=== PATIENT | male | born 1960 | race Caucasian/White ===

== ENCOUNTER 2016-11-29 06:50 | Day surgery (SDC) | payer OTHER ==
[~2016-11-29 06:50] MED LIST: FENTANYL 250 MCG/5 ML AMP IV PRN; IV START KIT ONE; LACTATED RINGERS 1,000 ML IV SCH; LACTATED RINGERS 1,000 ML ONE; LIDOCAINE Viscous 2% 15 ML UDCUP PO PRN; MIDAZOLAM HCL 5 MG/5 ML VIAL IV PRN
[2016-11-29] MEDS ORDERED: MIDAZOLAM HCL 5 MG/5 ML VIAL ONE (07:37)
[2016-11-29] MEDS ORDERED: LIDOCAINE Viscous 2% 15 ML UDCUP ONE (07:37)
[2016-11-29] MEDS ORDERED: FENTANYL 5 ML ONE (07:37)
[2016-11-29 17:15] LABS: HELICOBACTER PYLORII DETECTION NEGATIVE (NEGATIVE)
--- NOTE | 2016-12-01 12:06 | SURGPATH ---
[facility] [address] [place] [id number] Patient Name: BEE STEARNS MR#: [id number] : 1960 Gender: M Specimen #: [id number] Collected: 11/29/2016 Received: 11/30/2016 Reported: 12/01/2016 Submitting Phys: JESUS WALKER Copy To Phys: [facility] JOEY CASTILLO JULIE C Clinical History / Pre-Operative Diagnosis: Epigastric pain, dysphagia, rule out; giardia, celiac sprue, gastritis Specimen Source / Surgical Procedure Performed: #1 duodenal biopsy, #2 antral biopsy Interpretation: 1. STOMACH, BIOPSY: - GASTRIC MUCOSA WITH NO DIAGNOSTIC ABNORMALITY 2. DUODENUM, BIOPSY: - SMALL BOWEL MUCOSA WITH NO DIAGNOSTIC ABNORMALITY Comment: It appears that the tissue from the biopsies was put in jars with the opposite labels. The final diagnoses represent what was actually submitted in each specimen. Electronically Signed Out Stephy Cunningham M.D. Gross Description: 1. The specimen is received in formalin labeled with the patient's name and "duodenum". The specimen consists of two fragments of paige soft tissue, 0.8 x 0.4 x 0.1 cm in aggregate. Submitted in toto in one cassette. 2. The specimen is received in formalin labeled with the patient's name and "antrum". The specimen consists of two fragments of paige soft tissue, 0.8 x 0.2 x 0.2 cm in aggregate. Submitted in toto in one cassette. LOLI Ellison Microscopic Description: 1. Sections show fragments of gastric mucosa. There is normal mucosal architecture and no significant inflammation. No Helicobacter organisms are identified and there is no intestinal metaplasia or dysplasia. 2. Sections show fragments of small bowel mucosa with long and well preserved villous processes. There is no significant inflammation and lymphocytes are not increased within the epithelium. No infectious organisms are identified and there is no dysplasia. 1: [id number] 2: 47597 R10.13
== END 2016-11-29 09:05 | disposition home or self-care (01) ==
LOC: SDC 06:50
PROVIDERS: ATTEND Internal Medicine Gastroenterology
PROC: 0DB98ZX Excision of Duodenum, Via Natural or Artificial Opening Endoscopic, Diagnostic (ICD-10-PCS; principal; 2016-11-29)
PROC: 0DB68ZX Excision of Stomach, Via Natural or Artificial Opening Endoscopic, Diagnostic (ICD-10-PCS; 2016-11-29)
DX: K29.70 Gastritis, unspecified, without bleeding (principal); K29.80 Duodenitis without bleeding; Z86.010 Personal history of colon polyps; E78.5 Hyperlipidemia, unspecified
CPT/HCPCS: 87081; 43239; J3010; J2250; A9270; J7120